=== PATIENT | male | born 2000 | race Caucasian/White ===

== ENCOUNTER 2018-04-19 02:01 | Emergency (ER) | payer BC ==
[2018-04-19] MEDS ORDERED: NS 0.9% 1000 ML* 2,000 ML IV ONE (02:16)
[2018-04-19] MEDS ORDERED: Ondansetron ODT TAB* 4 MG PO ONE (02:16)
[2018-04-19 02:49] LABS: ABS Basophils 0 10^3/ul (0-0.2); ABS Lymphocytes 3.6 10^3/ul (1.0-4.8); ABS Monocytes 1.5 10^3/ul (0-0.8); ABS Neutrophils 6.3 10^3/ul (1.5-7.7); Hematocrit 41 % (42-52); Hemoglobin 14.3 g/dl (14.0-18.0); Mean Corpuscular HGB Conc 35 g/dl (31-36); Mean Corpuscular Hemoglobin 33 pg (27-31); Mean Corpuscular Volume 94 fL (80-94); Red Blood Count 4.33 10^6/ul (4.00-5.40); Red Cell Distribution Width 13 % (10.5-15); White Blood Count 12.5 10^3/ul (3.5-10.8)
[2018-04-19] MEDS ORDERED: Ondansetron INJ* 2 MG/ML VIAL IV ONE (02:54)
[2018-04-19] MEDS ORDERED: Potassium Chlor TAB* 20 MEQ TAB.ER PO ONE (03:16)
[2018-04-19 04:00] LABS: ABS Nucleated RBC 0 10^3/ul; Eosinophil % 7.8 % (0-6); Lymphocyte % 29.1 % (25-47); Nucleated Red Blood Cells % 0.1
[2018-04-19 04:34] LABS: Hematocrit 40 % (42-52); Mean Corpuscular HGB Conc 35 g/dl (31-36); Mean Corpuscular Hemoglobin 33 pg (27-31); Mean Corpuscular Volume 94 fL (80-94); Red Blood Count 4.23 10^6/ul (4.00-5.40); Red Cell Distribution Width 13 % (10.5-15); White Blood Count 15.1 10^3/ul (3.5-10.8)
[2018-04-19 04:37] LABS: ABS Basophils 0 10^3/ul (0-0.2); ABS Eosinophils 0.3 10^3/ul (0-0.6); ABS Monocytes 1.7 10^3/ul (0-0.8); ABS Neutrophils 12.1 10^3/ul (1.5-7.7); ABS Nucleated RBC 0 10^3/ul; Eosinophil % 1.8 % (0-6); Lymphocyte % 6.3 % (25-47); Nucleated Red Blood Cells % 0
[2018-04-19 06:28] LABS: Urine Appearance Clear; Urine Blood Negative (Negative); Urine Color Yellow; Urine Ketones Negative (Negative); Urine Protein Negative (Negative); Urine Specific Gravity 1.013 (1.010-1.030); Urine Urobilinogen Negative (Negative)
--- NOTE | 2018-04-19 07:40 | PN ---
IHeidi SooYoung, scribed for Loi Agarwal MD on 04/19/18 at 0735 . Progress Note - Progress Note Date of Service: 04/19/18 Note: SIGN OUT FROM DR. PETERSON AT SHIFT CHANGE PENDING LAB RESULTS 0732: Provder at bedside Pt states he feels much improved. Pt is a 18 y/o M who smoked marijuana [employer]. Pt states his platelets are always low, he sees a provider and is checked every 6 months. Pt feels ready for D/C. Will D/C home. DX: Dispo: Stable, D/C home. DISCUSSED LAB RESULTS WITH THE PATIENT. HE TELLS ME HE KNOWS HIS PLATELETS ARE ALWAYS LOW AND HE GETS THEM CHECKED EVERY 6 MONTHS WITH HIS DOCTOR. HE FEELS IMPROVED AND WISHES TO GO HOME. DX; ANXIETY, CANNABIS USE, THROMBOCYTOPENIA DISCGHARGE HOME STABLE F/U WITH HIS DOCTOR; RETURN TO ED IF WORSE. The documentation as recorded by the Heidi ku SooYoung accurately reflects the service I personally performed and the decisions made by me, Loi Agarwal MD.
[2018-04-19 08:06] VITALS: BP 113/68
--- NOTE | 2018-04-20 14:05 | ED ---
Chas Perales Rebecca, scribed for Dennis Mathur on 04/19/18 at 0217 . Psychiatric Complaint - HPI Summary HPI Summary: Pt is a 18 y/o M who presents to ED accompanied by his friends due to concern of panic attack secondary to marijuana use. Friends report that this is the first time he used marijuana in this quantity and that he was fine prior to drug use. Negative SIs. Deny any drug use besides marijuana. No PMHx depression. - History Of Current Complaint Chief Complaint: EDGeneral Time Seen by Provider: 04/19/18 02:09 Hx Obtained From: Other: - Friends Onset/Duration: Still Present Character: Anxious Aggravating Factor(s): Drug Use - Marijuana Alleviating Factor(s): Nothing Associated Signs And Symptoms: Positive: Negative Has Suicidal: Denies: Thoughts Ingestion History: Type/Name Of Drug - Marijuana - Allergies/Home Medications Allergies/Adverse Reactions: Allergies Allergy/AdvReac Type Severity Reaction Status Date / Time amoxicillin Allergy Rash Verified 04/19/18 02:07 peanut Allergy Anaphylatic Verified 04/19/18 02:07 Shock Home Medications: Home Medications NK [No Home Medications Reported] 04/19/18 [History Confirmed 04/19/18] PMH/Surg Hx/FS Hx/Imm Hx Endocrine/Hematology History: Reports: Other Endocrine/Hematological Disorders - chronic itp Musculoskeletal History: Denies: Hx Rheumatoid Arthritis, Hx Osteoporosis Psychiatric History: Denies: Hx Depression Infectious Disease History: No Infectious Disease History: Denies: Traveled Outside the [place] in Last 30 Days - Social History Occupation: Student Lives: With Family Substance Use Type: Reports: Marijuana Review of Systems Negative: Fever Positive: Anxious, Other - NEGATIVE: SIs All Other Systems Reviewed And Are Negative: Yes Physical Exam - Summary Physical Exam Summary: Appearance: Well appearing, no pain distress Skin: warm, dry, reflects adequate perfusion Head/face: normal Eyes: EOMI, DUC ENT: normal Neck: supple, non-tender Respiratory: CTA, breath sounds present Cardiovascular: Tachycardic, pulses symmetrical Abdomen: non-tender, soft Bowel: present Musculoskeletal: normal, strength/ROM intact Neuro: sensory motor intact, alert and confused Triage Information Reviewed: Yes Vital Signs On Initial Exam: Initial Vitals Temp Pulse Resp BP Pulse Ox 98.0 F 135 20 136/86 97 04/19/18 02:04 04/19/18 02:04 04/19/18 02:04 04/19/18 02:04 04/19/18 02:04 Vital Signs Reviewed: Yes Diagnostics - Vital Signs Vital Signs Temp Pulse Resp BP Pulse Ox 04/19/18 02:04 98.0 F 135 20 136/86 97 - Laboratory Result Diagrams: 04/19/18 04:14 04/19/18 02:30 Lab Statement: Any lab studies that have been ordered have been reviewed, and results considered in the medical decision making process. - EKG 0225 Cardiac Rate: Tachycardia - 120 bpm EKG Rhythm: Sinus Tachycardia EKG Interpretation: No acute changes Course/Dx - Course Assessment/Plan: Pt is a 18 y/o M who presents to ED accompanied by his friends due to concern of panic attack secondary to marijuana use as this is the first time he used marijuana in this quantity and that he was fine prior to drug use. Negative SIs. Deny any drug use besides marijuana. No PMHx depression. EKG is sinus tachy with no acute changes. Blood work was done with results including an initial WBC of 12.5 and a repeat of 15.1, Hct of 41 and a repeat of 40, troponin of 0.00, and creatinine of 1.29. UA is negative for UTI. In the ED course, pt received fluids, Zofran, and potassium chloride. Pt will be signed out to Dr. Agarwal. Allergies noted. - Differential Dx/Clinical Impression Provider Diagnosis: Substance abuse, Thrombocytopenia Discharge - Sign-Out/Discharge Documenting (check all that apply): Sign-Out Patient Signing out patient TO: Loi Agarwal - Discharge Plan Referrals: Soren Marroquin MD [Primary Care Provider] - The documentation as recorded by the Chas ku Rebecca accurately reflects the service I personally performed and the decisions made by , Dennis Mathur.
== END 2018-04-19 08:04 | disposition home or self-care (01) ==
LOC: ED 02:01
DX: F41.9 Anxiety disorder, unspecified (principal); F12.10 Cannabis abuse, uncomplicated; D69.6 Thrombocytopenia, unspecified
CPT/HCPCS: 36415; 80053; 80307; 80320; 80329; 81003; 82550; 83615; 84443; 84484; 85025; 93005; 96360; 96374; 99283; A9270-GY; G0480; J2405